=== PATIENT | female | born 1985 | race Caucasian/White ===

== ENCOUNTER 2018-02-11 12:57 | Inpatient (IN) ==
--- NOTE | 2018-02-11 16:51 | P.HPOB ---
atient Name: Jelly Mcmanus Date of : 85 Patient Status: Inpatient Attending Provider: Jose Wilder Date: 02/11/18 16:46 Initialization Date: 02/11/18 16:46 History of Present Illness Primary Care Physician: Dr. Browning Chief Complaint: Vaginal bleeding History of Present Illness: 32-year-old at 39 weeks presents complaining of vaginal bleeding this morning. care with Dr. Browinng uneventful to date/denies history of previa. GBS is negative. Initially cervix was found to be 2 cm however patient was allowed to ambulate now 4 cm. Review of Systems All other systems reviewed negative except as stated in HPI PMFSH - Travel History Recent Travel in the [facility] Within the Last 8 Weeks: No Recent Travel Out of the Country Within the Last 8 Weeks: No Medications and Allergies Allergies Allergy/AdvReac Type Severity Reaction Status Date / Time No Known Allergies Allergy Verified 02/11/18 13:30 Home Medications Medication Instructions Recorded Confirmed Type PNV cmb#95-ferrous fumarate-FA 1 tab PO DAILY NEB 02/11/18 02/11/18 History [] Exam Vital signs: Vital Signs 02/11/18 13:25 02/11/18 13:27 02/11/18 13:40 Pulse Rate 92 H 94 H 95 H Blood Pressure 114/77 02/11/18 14:05 02/11/18 15:10 Pulse Rate 95 H 100 H Blood Pressure Intake & Output 02/10/18 02/11/18 02/11/18 18:59 06:59 18:59 Weight 68 kg Narrative: GENERAL: Well-nourished, well-developed patient. SKIN: Warm and dry. HEAD: Normocephalic and atraumatic. EYES: No scleral icterus. No injection or drainage. ENT: No nasal drainage noted. Mucous membranes pink. Airway patent. NECK: Supple, trachea midline. No JVD. CARDIOVASCULAR: Regular rate and rhythm without murmurs, gallops, or rubs. RESPIRATORY: Breath sounds equal bilaterally. No accessory muscle use. BREASTS: Bilateral exam showed no masses , no retractions, no nipple discharge. ABDOMEN/GI: Abdomen soft, non-tender, bowel sounds present, no rebound, no guarding Gravid to 39 weeks size Fundal Height: Consistent with gestational age GENITOURINARY: External Genitalia: intact and normal in appearance BUS glands: Unremarkable Cervix: Moderate to soft Dilatation: 4 Effacement: 80 Station: -2 Presentation: Vertex Membranes: Intact Uterine Contractions: Present FHT's: Category: 1 Reactive: Yes Variability: Moderate Decels: No EXTREMITIES: No cyanosis or edema. BACK: Nontender without obvious deformity. No CVA tenderness. NEUROLOGICAL: Awake and alert. Motor and sensory grossly within normal limits. Five out of 5 muscle strength in all muscle groups. Normal speech. Assessment and Plan - Diagnosis (1) 39 weeks gestation of Code(s): Z3A.39 - 39 weeks gestation of Status: Acute (2) Vaginal bleeding in Code(s): O46.90 - Antepartum hemorrhage, unspecified, unspecified trimester Status: Acute (3) Active labor at term Status: Acute - Plan Admit. Discussed with Dr. Arellano. Patient may continue ambulation as long as status is reassuring Discharge Plan - Discharge Disposition Patient Disposition: 30 Still Patient - Discharge Condition Condition: Good - Physicians Team ED Provider: Mackenzie Boggs Primary Care Provider: Primary Care Miladys Nichols - Rxs /Orders / Referrals /Forms Prescriptions: No Action PNV cmb#95-ferrous fumarate-FA [] 28 mg iron- 800 mcg Tablet 1 tab PO DAILY NEB - Discharge Instructions Print Language: Yemeni
[2018-02-11] MEDS ORDERED: Naloxone Inj 0.4 MG/ML Vial IV.PUSH PRN (16:52)
[2018-02-11] MEDS ORDERED: fentaNYL Citrate Inj 100 MCG/2 ML Ampul IV.PUSH PRN ×2 (16:52)
[2018-02-11] MEDS ORDERED: Oxytocin 30 Units/500ml Premix 30 UNITS/500 ML BAG IV.SIG ONE (16:52)
[2018-02-11] MEDS ORDERED: Sodium Chlor 0.9% Inj 500 ML IV.SIG PRN (16:52)
[2018-02-11] MEDS ORDERED: Sod Chloride 0.9% Inj 1,000 ML IV.CONT PRN (16:52)
[2018-02-11] MEDS ORDERED: Citric Acid/Sodium Citrate Liq 30 ML UDC PO SCH (17:00)
[2018-02-11 18:05] LABS: Baso # (Auto) 0.1 th/mm3 (0.0-0.2); Baso % (Auto) 0.3 % (0.0-2.0); Eos % (Auto) 0.2 % (0.0-4.0); Hematocrit 36.4 % (35.0-46.0); Hemoglobin 12.8 gm/dL (11.6-15.3); Lymph # (Auto) 2.1 th/mm3 (1.0-4.8); Lymph % (Auto) 13.9 % (9.0-44.0); Mean Corpuscular HGB Conc 35.1 % (32.0-36.0); Mean Corpuscular Hemoglobin 32.3 pg (27.0-34.0); Mean Corpuscular Volume 92.2 fL (80.0-100.0); Mean Platelet Volume 9.3 fL (7.0-11.0); Mono # (Auto) 0.4 th/mm3 (0.0-0.9); Mono % (Auto) 2.9 % (0.0-8.0); Neut # (Auto) 12.3 th/mm3 (1.8-7.7); Neut % (Auto) 82.7 % (16.0-70.0); Platelet Count 219 th/mm3 (150-450); Red Blood Count 3.95 mil/mm3 (4.00-5.30); Red Cell Distribution Width 13.4 % (11.6-17.2); White Blood Count 14.9 th/mm3 (4.0-11.0)
[2018-02-11] MEDS ORDERED: Oxytocin 30 Units/500ml Premix 30 UNITS/500 ML BAG IV.SIG PRN (21:19)
[2018-02-11 22:27] LABS: Bilirubin,Urine Negative (Negative); Clarity,Urine Hazy (Clear); Color,Urine Yellow (Yellw/Straw); Glucose,Urine (UA) Negative (Negative); Leukocyte Esterase,Urine Negative (Negative); Mucus,Urine Few /lpf (Occasional); Nitrite,Urine Negative (Negative); Specific Gravity,Urine 1.024 (1.002-1.035); Squamous Epithelial Cell,Urine 3 /hpf (0-5)
[2018-02-11 22:40] LABS: Amphetamine Urine With Conf Neg (Neg); Benzodiazepine Urine With Conf Neg (Neg)
[2018-02-12] MEDS ORDERED: fentaNYL 2MCG-Bupiv 0.125% Epi 150 ML EPIDURAL ONE (06:24)
[2018-02-12] MEDS ORDERED: Bupivacaine PF 0.25% Inj 10 ML Vial ONE (06:41)
[2018-02-12] MEDS ORDERED: Lidocaaine 1.5%/Epinephrine 1:200,000 PF Inj 5 ML Amp ONE (06:42)
[2018-02-12] MEDS ORDERED: Lidocaine PF 1% Inj 5 ML Vial ONE (06:42)
[2018-02-12] MEDS ORDERED: fentaNYL Citrate Inj 100 MCG/2 ML Ampul EPIDURAL ONE (07:55)
[2018-02-12] MEDS ORDERED: fentaNYL 2MCG-Bupiv 0.125% Epi 150 ML EPIDURAL PRN (08:00)
--- NOTE | 2018-02-12 10:08 | P.OBLABOR ---
Subjective Interval history: pt comfortable with epidural, on pitocin Objective Vital Signs: Vital Signs - 8 hr 02/12/18 03:00 02/12/18 03:30 02/12/18 05:39 Temperature 98.5 F Pulse Rate 71 75 Respiratory Rate 14 Blood Pressure 124/78 116/70 02/12/18 06:00 02/12/18 06:50 02/12/18 06:56 Temperature 98.7 F Pulse Rate 94 H 82 Respiratory Rate 20 15 Blood Pressure 129/85 118/76 02/12/18 07:00 02/12/18 07:10 02/12/18 07:15 Temperature Pulse Rate 93 H 92 H 97 H Respiratory Rate Blood Pressure 116/75 104/63 117/69 02/12/18 07:30 02/12/18 07:40 02/12/18 07:55 Temperature Pulse Rate 97 H 101 H 81 Respiratory Rate 18 Blood Pressure 116/74 114/70 116/69 02/12/18 08:35 02/12/18 08:40 02/12/18 08:44 Temperature Pulse Rate 91 H 107 H Respiratory Rate 16 Blood Pressure 105/71 02/12/18 08:55 02/12/18 09:00 02/12/18 09:10 Temperature 98.8 F Pulse Rate 94 H 100 H Respiratory Rate Blood Pressure 118/83 02/12/18 09:31 Temperature Pulse Rate 108 H Respiratory Rate Blood Pressure 100/56 L Objective: Pelvic Exam: Cervix: [-] Dilatation: [-] 7 Effacement: [-] 90 Station: [-] 0 Presentation: [-] vtx Membranes: [intact or ruptured] arom clear at 0840 Uterine Contractions: [-] q3-4 FHT's: Category: [-] 1 Baseline: [-] Reactive: [-] R Variability: [-] Decels: [-] Patient Started Active Labor: Yes Medical Induction of Labor: No Artificial Rupture of Membrane: Yes Artificial ROM Date: 02/12/18 Assessment and Plan - Diagnosis (1) 39 weeks gestation of Code(s): Z3A.39 - 39 weeks gestation of Status: Acute (2) Active labor at term Status: Acute - Plan IUP at term in labor f/u labor progress, anticipate Discharge Planning: routine PPD 1-2 - Attending Attestation pt seen by me
[2018-02-12] MEDS ORDERED: Lidocaine 1% Inj 50 ML Vial ONE (10:25)
[2018-02-12] MEDS ORDERED: Benzocaine 20% Top Spray 60 ML Can TOPICAL PRN (14:50)
[2018-02-12] MEDS ORDERED: Naloxone Inj 0.4 MG/ML Vial IV.PUSH PRN (14:50)
[2018-02-12] MEDS ORDERED: Oxytocin 30 Units/500ml Premix 30 UNITS/500 ML BAG IV.CONT PRN (14:50)
[2018-02-12] MEDS ORDERED: Bisacodyl 10 MG Supp RECTAL PRN (14:50)
[2018-02-12] MEDS ORDERED: Witch Hazel 50%/Glyderin 12.5% 40 Pad Jar RECTAL PRN (14:50)
[2018-02-12] MEDS ORDERED: Acetaminophen 325 MG Tablet PO PRN (14:50)
--- NOTE | 2018-02-12 14:50 | P.OBDELI ---
Weeks Gestation: 39 Patient Started Active Labor: Yes Active Labor Start Date: 02/11/18 Medical Induction of Labor: No Artificial Rupture of Membrane: Yes Artificial ROM Date: 02/12/18 Artificial ROM Time: 08:38 Anesthesia: Epidural Episiotomy: none Vaginal Delivery: Normal Presentation: Occiput anterior Nuchal Cord: None Delayed Cord Clamping (45 sec): Yes Placenta: Spontaneous delivery Laceration: 2 deg Repair: Chromic interrupted Estimated blood loss (mL): 300 Infant: Male
[2018-02-12] MEDS ORDERED: Diphtheria/Tetanus/Pertussis Vaccine Inj 0.5 ML Syringe IM ONE (16:00)
[2018-02-12] MEDS ORDERED: Measles/Mumps/Rubella Vaccine Inj 0.5 ML Vial SQ ONE (16:00)
[2018-02-12] MEDS ORDERED: Zolpidem Tartrate 5 MG Tablet PO PRN (21:00)
[2018-02-13] MEDS: Senna/Docusate Sodium 8.6/50 MG Tablet PO SCH (08:10)
--- NOTE | 2018-02-13 09:59 | P.PNOB ---
Subjective Post day: 1 Interval history: doing well, baby for circ Objective Vital Signs/I&O: Vital Signs 02/12/18 10:10 02/12/18 10:25 02/12/18 10:30 Temperature Pulse Rate 104 H 94 H 100 H Respiratory Rate Blood Pressure 114/75 112/71 02/12/18 10:40 02/12/18 10:55 02/12/18 11:00 Temperature 98.1 F Pulse Rate 98 H 95 H 81 Respiratory Rate Blood Pressure 120/72 02/12/18 11:05 02/12/18 11:10 02/12/18 11:25 Temperature Pulse Rate 97 H 79 85 Respiratory Rate Blood Pressure 115/74 02/12/18 11:55 02/12/18 12:00 02/12/18 12:11 Temperature 98.9 F Pulse Rate 84 96 H Respiratory Rate Blood Pressure 101/60 02/12/18 12:25 02/12/18 12:55 02/12/18 13:05 Temperature Pulse Rate 95 H 102 H 92 H Respiratory Rate Blood Pressure 106/73 114/73 02/12/18 13:10 02/12/18 13:40 02/12/18 14:45 Temperature Pulse Rate 98 H 101 H 115 H Respiratory Rate Blood Pressure 118/79 113/68 02/12/18 15:00 02/12/18 15:15 02/12/18 15:25 Temperature 99.5 F Pulse Rate 113 H 111 H Respiratory Rate Blood Pressure 114/74 120/78 02/12/18 15:30 02/12/18 16:16 02/12/18 20:33 Temperature 98.3 F Pulse Rate 109 H 95 H 64 Respiratory Rate 18 Blood Pressure 111/69 106/66 96/69 L 02/13/18 08:19 Temperature 98.7 F Pulse Rate 96 H Respiratory Rate 18 Blood Pressure 106/73 Intake & Output 02/12/18 02/13/18 02/13/18 18:59 06:59 18:59 Intake Total 1000 / 1000 Balance 1000 / 1000 Intake: IV 1000 / 1000 LR 1000 mL Inj 1,000 ML @ 125 1000 / 1000 mls/hr IV.CONT .Q8H [facility] Rx#: [id number] Result Diagrams: 02/11/18 17:30 Objective Remarks: GENERAL: Well-nourished, well-developed patient. CARDIOVASCULAR: Regular rate and rhythm without murmurs, gallops, or rubs. RESPIRATORY: Breath sounds equal bilaterally. No accessory muscle use. ABDOMEN/GI: Abdomen soft, non-tender. Fundus: Firm, non-tender at umbilicus. GENITOURINARY: Light to moderate bleeding. EXTREMITIES: No cyanosis or edema, non-tender, without signs of DVT. Medications and IVs: Active Medications Acetaminophen (Tylenol) 650 mg PO Q4H PRN PRN Reason: PAIN SCALE 1 TO 2 Al Hydroxide/Mg Hydroxide (Milk Of Magnesia Liq) 30 ml PO Q12H PRN PRN Reason: Mild Constipation Benzocaine (Americaine 20% Top [place]) 1 spray TOPICAL Q4H PRN PRN Reason: For Perineum Discomfort Last Admin: 02/12/18 15:48 Dose: 1 spray Bisacodyl (Dulcolax Supp) 10 mg RECTAL DAILY PRN PRN Reason: SEVERE CONSITIPATION Citric Acid/Sodium Citrate (Sodium Citrate/Citric Acid Liq) 30 ml PO [employer] [facility] Stop: 02/15/18 16:59 Fentanyl Citrate (Fentanyl Inj) 50 mcg IV.PUSH Q1H PRN PRN Reason: Pain Scale 3 - 5 Fentanyl Citrate (Fentanyl Inj) 100 mcg IV.PUSH Q1H PRN PRN Reason: PAIN SCALE 6 TO 10 Lactated Ringer's (Lr 1000 Ml Inj) 1,000 mls @ 3,000 mls/hr IV.SIG UNSCH PRN PRN Reason: compromise or epidural Lactated Ringer's (Lr 1000 Ml Inj) 1,000 mls @ 125 mls/hr IV.CONT .Q8H [facility] Last Admin: 02/12/18 07:53 Dose: 125 mls/hr Sodium Chloride (Ns Inj) 500 mls @ 1,000 mls/hr IV.SIG UNSCH PRN PRN Reason: SEE LABEL COMMENTS Sodium Chloride (Ns Inj) 1,000 mls @ 100 mls/hr IV.CONT .Q10H PRN PRN Reason: SEE LABEL COMMENTS Oxytocin (Pitocin 30 Units/Ns 500 Ml Premix) 30 units in 500 mls @ 2 mls/hr IV.SIG TITRATE PRN; Protocol PRN Reason: For induction of labor Last Admin: 02/12/18 01:36 Dose: 1 milliunit/min, 1 mls/hr Fentanyl/Bupivacaine/Sodium Chlor (Fentanyl 2 Mcg-Bupiv 0.125% Epi) 150 mls @ 10 mls/hr EPIDURAL PRN PRN PRN Reason: for Labor Pain Oxytocin (Pitocin 30 Units/Ns 500 Ml Premix) 30 units in 500 mls @ 100 mls/hr IV.CONT UNSCH PRN PRN Reason: Heavy bleeding Ibuprofen (Motrin) 800 mg PO Q8H PRN PRN Reason: For Cramping Last Admin: 02/13/18 08:09 Dose: 800 mg Lactulose (Lactulose Liq) 30 ml PO DAILY PRN PRN Reason: SEVERE CONSITIPATION Lidocaine HCl (Xylocaine 1% Inj) 0.1 ml I-DERMAL PRN PRN PRN Reason: For IV start Stop: 02/14/18 16:51 Lidocaine HCl (Xylocaine 1% Inj) 10 ml INFILTRATN PRN PRN PRN Reason: For episiotomy repair Stop: 02/13/18 16:51 Mineral Oil (Muri-Lube Oil) 10 ml TOPICAL PRN PRN PRN Reason: PRN perineal massage Naloxone HCl (Narcan Inj) 0.1 mg IV.PUSH Q2M PRN PRN Reason: for opiate reversal Naloxone HCl (Narcan Inj) 0.1 mg IV.PUSH Q2M PRN PRN Reason: for opiate reversal Ondansetron HCl (Zofran Odt) 4 mg PO Q6H PRN PRN Reason: NAUSEA OR VOMITING Senna/Docusate Sodium (Christina-Colace) 1 tab PO BID [facility] Last Admin: 02/13/18 08:10 Dose: 1 tab Sennosides (Senokot) 17.2 mg PO Q12H PRN PRN Reason: Moderate Constipation Sodium Chloride (Ns Flush) 2 ml IV.FLUSH BID [facility] Last Admin: 02/13/18 08:29 Dose: Not Given Sodium Chloride (Ns Flush) 2 ml IV.FLUSH PRN PRN PRN Reason: FLUSH AFTER USING IV ACCESS Last Admin: 02/12/18 15:47 Dose: 2 ml Witch Divya/Glycerin (Tucks Pads) 1 applicatio RECTAL QID PRN PRN Reason: HEMORRHOIDS Last Admin: 02/12/18 15:48 Dose: 1 applicatio Zolpidem Tartrate (Ambien) 5 mg PO HS PRN PRN Reason: SLEEP Assessment and Plan - Diagnosis (1) 39 weeks gestation of Code(s): Z3A.39 - 39 weeks gestation of Status: Acute (2) Active labor at term Status: Acute (3) Vaginal delivery Code(s): O80 - Encounter for full-term uncomplicated delivery Status: Acute - Plan s/p PPD#1 circ done today for discharge in am Discharge Planning: routine PPD 1-2 - Attending Attestation pt seen by me
[2018-02-13] MEDS ORDERED: Influenza (Quadrivalent) Vaccine 0.5 ML Syringe IM ONE (18:30)
--- NOTE | 2018-02-14 08:16 | P.PNOB ---
Subjective Post day: 2 Interval history: PPD#2, Doing well, stable,plan for discharge Objective Vital Signs/I&O: Vital Signs 02/13/18 08:19 02/13/18 21:30 Temperature 98.7 F 98.3 F Pulse Rate 96 H 76 Respiratory Rate 18 16 Blood Pressure 106/73 109/71 Result Diagrams: 02/11/18 17:30 Objective Remarks: GENERAL: Well-nourished, well-developed patient. CARDIOVASCULAR: Regular rate and rhythm without murmurs, gallops, or rubs. RESPIRATORY: Breath sounds equal bilaterally. No accessory muscle use. ABDOMEN/GI: Abdomen soft, non-tender. Fundus: Firm, non-tender at umbilicus. GENITOURINARY: Light to moderate bleeding. EXTREMITIES: No cyanosis or edema, non-tender, without signs of DVT. Medications and IVs: Active Medications Acetaminophen (Tylenol) 650 mg PO Q4H PRN PRN Reason: PAIN SCALE 1 TO 2 Al Hydroxide/Mg Hydroxide (Milk Of Magnesia Liq) 30 ml PO Q12H PRN PRN Reason: Mild Constipation Benzocaine (Americaine 20% Top [place]) 1 spray TOPICAL Q4H PRN PRN Reason: For Perineum Discomfort Last Admin: 02/12/18 15:48 Dose: 1 spray Bisacodyl (Dulcolax Supp) 10 mg RECTAL DAILY PRN PRN Reason: SEVERE CONSITIPATION Citric Acid/Sodium Citrate (Sodium Citrate/Citric Acid Liq) 30 ml PO [employer]AL[employer] [facility] Stop: 02/15/18 16:59 Fentanyl Citrate (Fentanyl Inj) 50 mcg IV.PUSH Q1H PRN PRN Reason: Pain Scale 3 - 5 Fentanyl Citrate (Fentanyl Inj) 100 mcg IV.PUSH Q1H PRN PRN Reason: PAIN SCALE 6 TO 10 Lactated Ringer's (Lr 1000 Ml Inj) 1,000 mls @ 3,000 mls/hr IV.SIG UNSCH PRN PRN Reason: compromise or epidural Lactated Ringer's (Lr 1000 Ml Inj) 1,000 mls @ 125 mls/hr IV.CONT .Q8H [facility] Last Admin: 02/12/18 07:53 Dose: 125 mls/hr Sodium Chloride (Ns Inj) 500 mls @ 1,000 mls/hr IV.SIG UNSCH PRN PRN Reason: SEE LABEL COMMENTS Sodium Chloride (Ns Inj) 1,000 mls @ 100 mls/hr IV.CONT .Q10H PRN PRN Reason: SEE LABEL COMMENTS Oxytocin (Pitocin 30 Units/Ns 500 Ml Premix) 30 units in 500 mls @ 2 mls/hr IV.SIG TITRATE PRN; Protocol PRN Reason: For induction of labor Last Admin: 02/12/18 01:36 Dose: 1 milliunit/min, 1 mls/hr Fentanyl/Bupivacaine/Sodium Chlor (Fentanyl 2 Mcg-Bupiv 0.125% Epi) 150 mls @ 10 mls/hr EPIDURAL PRN PRN PRN Reason: for Labor Pain Oxytocin (Pitocin 30 Units/Ns 500 Ml Premix) 30 units in 500 mls @ 100 mls/hr IV.CONT UNSCH PRN PRN Reason: Heavy bleeding Ibuprofen (Motrin) 800 mg PO Q8H PRN PRN Reason: For Cramping Last Admin: 02/13/18 18:24 Dose: 800 mg Lactulose (Lactulose Liq) 30 ml PO DAILY PRN PRN Reason: SEVERE CONSITIPATION Lidocaine HCl (Xylocaine 1% Inj) 0.1 ml I-DERMAL PRN PRN PRN Reason: For IV start Stop: 02/14/18 16:51 Mineral Oil (Muri-Lube Oil) 10 ml TOPICAL PRN PRN PRN Reason: PRN perineal massage Naloxone HCl (Narcan Inj) 0.1 mg IV.PUSH Q2M PRN PRN Reason: for opiate reversal Naloxone HCl (Narcan Inj) 0.1 mg IV.PUSH Q2M PRN PRN Reason: for opiate reversal Ondansetron HCl (Zofran Odt) 4 mg PO Q6H PRN PRN Reason: NAUSEA OR VOMITING Senna/Docusate Sodium (Christina-Colace) 1 tab PO BID [facility] Last Admin: 02/13/18 08:10 Dose: 1 tab Sennosides (Senokot) 17.2 mg PO Q12H PRN PRN Reason: Moderate Constipation Sodium Chloride (Ns Flush) 2 ml IV.FLUSH BID [facility] Last Admin: 02/13/18 08:29 Dose: Not Given Sodium Chloride (Ns Flush) 2 ml IV.FLUSH PRN PRN PRN Reason: FLUSH AFTER USING IV ACCESS Last Admin: 02/12/18 15:47 Dose: 2 ml Witch Divya/Glycerin (Tucks Pads) 1 applicatio RECTAL QID PRN PRN Reason: HEMORRHOIDS Last Admin: 02/12/18 15:48 Dose: 1 applicatio Zolpidem Tartrate (Ambien) 5 mg PO HS PRN PRN Reason: SLEEP Assessment and Plan - Diagnosis (1) 39 weeks gestation of Code(s): Z3A.39 - 39 weeks gestation of Status: Acute (2) Active labor at term Status: Acute (3) Vaginal delivery Code(s): O80 - Encounter for full-term uncomplicated delivery Status: Acute - Plan s/p PPD#1 circ done today for discharge in am 02/14/18 PPD#2; Stable, plan discharge today Discharge Planning: routine PPD 2
[2018-02-14 09:16] VITALS: BP 130/92; PULSE 80; RESP 12; TEMP 98.4
[2018-02-14] MEDS: Senna/Docusate Sodium 8.6/50 MG Tablet PO SCH (09:41)
== END 2018-02-14 16:24 | disposition home or self-care (01) ==
LOC: HOBED 12:57 → H2E 16:45 → H1EA 02-12 17:16
PROVIDERS: ADMIT Obstetrics & Gynecology; ATTEND Obstetrics & Gynecology

== ENCOUNTER 2018-02-28 06:08 | Inpatient (IN) ==
[2018-02-28 07:28] LABS: Baso % (Auto) 0.4 % (0.0-2.0); Eos # (Auto) 0.2 th/mm3 (0.0-0.4); Hematocrit 38.2 % (35.0-46.0); Hemoglobin 12.9 gm/dL (11.6-15.3); Lymph # (Auto) 1.7 th/mm3 (1.0-4.8); Lymph % (Auto) 19.1 % (9.0-44.0); Mean Corpuscular HGB Conc 33.8 % (32.0-36.0); Mean Corpuscular Hemoglobin 31.6 pg (27.0-34.0); Mean Corpuscular Volume 93.5 fL (80.0-100.0); Mono # (Auto) 0.3 th/mm3 (0.0-0.9); Mono % (Auto) 3.8 % (0.0-8.0); Neut # (Auto) 6.7 th/mm3 (1.8-7.7); Neut % (Auto) 74.7 % (16.0-70.0); Platelet Count 316 th/mm3 (150-450); Red Blood Count 4.09 mil/mm3 (4.00-5.30); Red Cell Distribution Width 12.8 % (11.6-17.2); White Blood Count 8.9 th/mm3 (4.0-11.0)
--- NOTE | 2018-02-28 07:28 | ED ---
HPI General Chief Complaint: Headache Stated Complaint: Numbnesss hands Time Seen by Provider: 02/28/18 07:04 Source: patient and family Mode of arrival: ambulatory Limitations: no limitations History of Present Illness HPI Narrative: 32 y/o female states at 3 am awoke with left arm weakness and numbness. She is [address] castle Performed a vaginal delivery. She states that she had no complications with the delivery but was borderline preeclamptic near the end. She states that she did not have any symptoms yesterday. She states that her left breast is more engorged if that matters. She states that She is having no other concurrent complaints. She states she did have a headache earlier but it has now resolved. Related Data Home Medications Medication Instructions Recorded Confirmed PNV cmb#95-ferrous fumarate-FA 1 tab PO DAILY NEB 02/11/18 02/28/18 [] Allergies Allergy/AdvReac Type Severity Reaction Status Date / Time No Known Allergies Allergy Verified 02/28/18 06:13 Review of Systems ROS: all other systems reviewed are negative [facility] Medical History Medical History Prehypertension (Acute) Surgical History Surgical History No history of previous surgery (Acute) Social History Social History Substance History: No History of Abuse Second Hand Smoke Exposure: No Smoking Status: Never smoker How Often Do You Have a Drink Containing Alcohol: Never Recent Travel in [facility] within the Last 8 Weeks: No Recent Out of Country Travel within the Last 8 Weeks: No Immunization History Tetanus Immunization: <5 Years Exam Narrative Exam Narrative: GENERAL: 32 y/o female in no apparent distress SKIN: Focused skin assessment warm/dry. HEAD: Atraumatic. Normocephalic. EYES: Pupils equal and round. No scleral icterus. No injection or drainage. ENT: No nasal bleeding or discharge. Mucous membranes pink and moist. NECK: Trachea midline. No JVD. CARDIOVASCULAR: Regular rate and rhythm. RESPIRATORY: No accessory muscle use. Clear to auscultation. Breath sounds equal bilaterally. GASTROINTESTINAL: Abdomen soft, non-tender, nondistended. MUSCULOSKELETAL: No obvious deformities. No clubbing. No cyanosis. No edema. NEUROLOGICAL: Awake and alert. Patient has mild weakness noted to left hand with grasp, no pronator drift but left arm has mild weakness associated as well. She has noted tingling to her entire left lower arm from elbow down currently. No weakness noted to the legs, rapid alternating intact, Normal speech. PSYCHIATRIC: Appropriate mood and affect; insight and judgment normal. Course Reevaluation(s) Reevaluation #1: Patient updated and agrees to admission. Patient still without headache and weakness has improved but still present. Consultations Consultation #1: ob hospitalist states to also check urine protein to creatnine ratio and will follow Consultation #2: dr tinsley states to check mri and mra head stat if these are negative to check mrv and admit Consultation #3: dr ratliff agrees to admit Initial Documented Vital Signs Temperature 98.8 F 02/28/18 06:10 Pulse Rate 101 H 02/28/18 06:10 Respiratory Rate 18 02/28/18 06:10 Blood Pressure 148/94 H 02/28/18 06:10 Pulse Oximetry 98 02/28/18 06:10 Last Documented Vital Signs Temperature 98.8 F 02/28/18 06:10 Pulse Rate 82 02/28/18 07:30 Respiratory Rate 22 02/28/18 07:30 Blood Pressure 135/80 02/28/18 07:30 Pulse Oximetry 97 02/28/18 07:30 Medical Decision Making [facility] Narrative Medical decision making narrative: Will check blood work, CT brain and closely monitor Medical Screen Exam Complete: Yes Emergency Medical Condition: Yes Differential Diagnosis Differential Diagnosis: Preeclampsia, radial nerve palsy, stroke, bleed Lab Data Result diagrams: 02/28/18 07:11 02/28/18 07:11 Lab Results 02/28/18 02/28/18 02/28/18 Range/Units 04:50 04:50 07:11 WBC 8.9 (4.0-11.0) th/mm3 RBC 4.09 (4.00-5.30) mil/mm3 Hgb 12.9 (11.6-15.3) gm/dL Hct 38.2 (35.0-46.0) % MCV 93.5 (80.0-100.0) fL MCH 31.6 (27.0-34.0) pg MCHC 33.8 (32.0-36.0) % RDW 12.8 (11.6-17.2) % Plt Count 316 D (150-450) th/mm3 MPV 8.0 (7.0-11.0) fL Neut % (Auto) 74.7 H (16.0-70.0) % Lymph % (Auto) 19.1 (9.0-44.0) % [place] % (Auto) 3.8 (0.0-8.0) % Eos % (Auto) 2.0 (0.0-4.0) % Baso % (Auto) 0.4 (0.0-2.0) % Neut # (Auto) 6.7 (1.8-7.7) th/mm3 Lymph # (Auto) 1.7 (1.0-4.8) th/mm3 [place] # (Auto) 0.3 (0.0-0.9) th/mm3 Eos # (Auto) 0.2 (0.0-0.4) th/mm3 Baso # (Auto) 0.0 (0.0-0.2) th/mm3 WBC Differential . Differential Comment Auto diff final PT (9.8-11.6) sec INR Ratio APTT (24.3-30.1) sec Sodium (136-145) meq/L Potassium (3.5-5.1) meq/L Chloride (98-107) meq/L Carbon Dioxide (21.0-32.0) meq/L Anion Gap (5-15) meq/L BUN (7-18) mg/dL Creatinine (0.50-1.00) mg/dL Estimated GFR (>89) mL/min Random Glucose (74-106) mg/dL Calcium (8.5-10.1) mg/dL Total Bilirubin (0.2-1.0) mg/dL AST (15-37) U/L ALT (10-53) U/L Alkaline Phosphatase (45-117) U/L Total Protein (6.4-8.2) g/dL Albumin (3.4-5.0) g/dL Urine Color Straw (Yellw/Straw) Urine Clarity Clear (Clear) Urine pH 6.0 (5.0-8.5) Ur Specific Al[place] 1.004 (1.002-1.035) Urine Protein Negative (Neg-Trace) mg/dL Urine Glucose (UA) Negative (Negative) mg/dL Urine Ketones Negative (Negative) mg/dL Urine Occult Blood Moderate H (Negative) Urine Nitrate Negative (Negative) Urine Bilirubin Negative (Negative) Urine Urobilinogen Less than 2 (Less than 2) mg/dL Ur Leukocyte Esterase Moderate H (Negative) Urine RBC 2 (0-3) /hpf Urine WBC 6 H (0-5) /hpf Ur Squamous Epith Cells 6 (0-5) /hpf Urine Bacteria Rare H (None) /hpf Micro UA Comment Culture not ind Ur Microscopic Review Not Reportable Urine Culture Comments Culture not ind Ur Random Creatinine Less than 13 L (27-300) mg/dL U Random Total Protein 6.5 (0-11.8) mg/dL Protein/Creatinin Ratio 0.00 (0.00-0.14) 02/28/18 02/28/18 Range/Units 07:11 07:11 WBC (4.0-11.0) th/mm3 RBC (4.00-5.30) mil/mm3 Hgb (11.6-15.3) gm/dL Hct (35.0-46.0) % MCV (80.0-100.0) fL MCH (27.0-34.0) pg MCHC (32.0-36.0) % RDW (11.6-17.2) % Plt Count (150-450) th/mm3 MPV (7.0-11.0) fL Neut % (Auto) (16.0-70.0) % Lymph % (Auto) (9.0-44.0) % [place] % (Auto) (0.0-8.0) % Eos % (Auto) (0.0-4.0) % Baso % (Auto) (0.0-2.0) % Neut # (Auto) (1.8-7.7) th/mm3 Lymph # (Auto) (1.0-4.8) th/mm3 [place] # (Auto) (0.0-0.9) th/mm3 Eos # (Auto) (0.0-0.4) th/mm3 Baso # (Auto) (0.0-0.2) th/mm3 WBC Differential Differential Comment PT 10.1 (9.8-11.6) sec INR 1.0 Ratio APTT 25.8 (24.3-30.1) sec Sodium 143 (136-145) meq/L Potassium 4.0 (3.5-5.1) meq/L Chloride 110 H (98-107) meq/L Carbon Dioxide 24.7 (21.0-32.0) meq/L Anion Gap 8 (5-15) meq/L BUN 13 (7-18) mg/dL Creatinine 0.64 (0.50-1.00) mg/dL Estimated GFR Greater than 89 (>89) mL/min Random Glucose 89 (74-106) mg/dL Calcium 8.7 (8.5-10.1) mg/dL Total Bilirubin 0.2 (0.2-1.0) mg/dL AST 16 (15-37) U/L ALT 21 (10-53) U/L Alkaline Phosphatase 131 H (45-117) U/L Total Protein 7.4 (6.4-8.2) g/dL Albumin 3.3 L (3.4-5.0) g/dL Urine Color (Yellw/Straw) Urine Clarity (Clear) Urine pH (5.0-8.5) Ur Specific [place] (1.002-1.035) Urine Protein (Neg-Trace) mg/dL Urine Glucose (UA) (Negative) mg/dL Urine Ketones (Negative) mg/dL Urine Occult Blood (Negative) Urine Nitrate (Negative) Urine Bilirubin (Negative) Urine Urobilinogen (Less than 2) mg/dL Ur Leukocyte Esterase (Negative) Urine RBC (0-3) /hpf Urine WBC (0-5) /hpf Ur Squamous Epith Cells (0-5) /hpf Urine Bacteria (None) /hpf Micro UA Comment Ur Microscopic Review Urine Culture Comments Ur Random Creatinine (27-300) mg/dL U Random Total Protein (0-11.8) mg/dL Protein/Creatinin Ratio (0.00-0.14) Imaging Data Radiologist's impression: Head CT 02/28/18 07:14 CONCLUSION: 1. Negative for acute process . Discharge Plan Discharge Disposition Patient Disposition: 30 Still Patient Discharge Details Diagnosis: Left arm weakness Physicians Team ED Provider: Jannie Estevez Primary Care Provider: Primary Care Magdalena,Miladys Attending Provider: Daya Gonzalez Other Providers: Ifeoma Tinsley ; [facility],Insurance Discharge Interventions Interventions: Vital Signs Last Done: 02/28/18 06:13 Status ED Status: Admitted Patient
[2018-02-28 07:40] LABS: Activated Partial Thrombo Time 25.8 sec (24.3-30.1); Prothrombin Time 10.1 sec (9.8-11.6)
[2018-02-28 07:52] LABS: Alanine Aminotransferase 21 U/L (10-53); Albumin 3.3 g/dL (3.4-5.0); Anion Gap 8 meq/L (5-15); Aspartate Aminotransferase 16 U/L (15-37); Blood Urea Nitrogen 13 mg/dL (7-18); Calcium 8.7 mg/dL (8.5-10.1); Carbon Dioxide 24.7 meq/L (21.0-32.0); Chloride 110 meq/L (98-107); Glomerular Filtration Rate Greater Than 89 mL/min (>89); Glucose,Random 89 mg/dL (74-106); Sodium 143 meq/L (136-145)
[2018-02-28 07:54] LABS: Alkaline Phosphatase 131 U/L (45-117); Total Protein 7.4 g/dL (6.4-8.2)
--- NOTE | 2018-02-28 08:20 | CT ---
EXAM DATE: 02/28/2018 8:16 AM EDT AGE/SEX: 32 years / Female INDICATIONS: Bilateral hand numbness and weakness for one week. Two weeks post . CLINICAL DATA: This is the patient's initial encounter. Patient reports that signs and symptoms have been present for 1 week and indicates a pain score of 2/10. MEDICAL/SURGICAL HISTORY: None. None. RADIATION DOSE: 56.35 CTDI (mGy) COMPARISON: No prior exams available for comparison. TECHNIQUE: CT of the head without contrast. Using automated exposure control and adjustment of the mA and/or kV according to patient size, radiation dose was kept as low as reasonably achievable to ob tain optimal diagnostic quality images. DICOM format image data is available electronically for revi ew and comparison. FINDINGS: Cerebrum: The ventricles are normal for age. No evidence of midline shift, mass lesion, hemorrhage or acute infarction. No extraaxial fluid collections are seen. Posterior Fossa: The cerebellum and brainstem are intact. The 4th ventricle is midline. The cerebe llopontine angle is unremarkable. Extracranial: The visualized portion of the orbits is intact. Skull: The calvaria is intact. No evidence of skull fracture. CONCLUSION: 1. Negative for acute process . Electronically signed by: Dannie Dias MD 02/28/2018 8:19 AM EDT
[2018-02-28 08:22] LABS: Bacteria,Urine Rare /hpf; Bilirubin,Urine Negative (Negative); Clarity,Urine Clear (Clear); Color,Urine Straw (Yellw/Straw); Glucose,Urine (UA) Negative (Negative); Leukocyte Esterase,Urine Moderate (Negative); Nitrite,Urine Negative (Negative); Specific Gravity,Urine 1.004 (1.002-1.035); Squamous Epithelial Cell,Urine 6 /hpf (0-5)
[2018-02-28] MEDS ORDERED: Bisacodyl 10 MG Supp RECTAL PRN (09:00)
[2018-02-28] MEDS ORDERED: Acetaminophen 325 MG Tablet PO PRN (09:00)
[2018-02-28] MEDS ORDERED: Gadobutrol PF 2 MMOL/2 ML Vial (for RAD) IV.SIG ONE (09:30)
--- NOTE | 2018-02-28 10:13 | MR ---
EXAM DATE: 02/28/2018 9:43 AM EDT AGE/SEX: 32 years / Female INDICATIONS: Right sided weakness. CLINICAL DATA: This is the patient's initial encounter. Patient reports that signs and symptoms have been present for 1 day and indicates a pain score of 0/10. MEDICAL/SURGICAL HISTORY: None. None. COMPARISON: [facility] [place], MR HEAD W & W/O CONTRAST, 02/28/2018. . TECHNIQUE: 3D [id number] MRA was performed. Source images, multiplanar STS MIP, and 3D volum e MIP reconstructions were reviewed. FINDINGS: There is excellent visualization of the major intracranial arteries out to the second-order branch ve ssels. There is no evidence for aneurysm, vessel truncation or stenosis, and no evidence for vascula r malformation. CONCLUSION: 1. Negative MRA of the brain Electronically signed by: Dannie Dias MD 02/28/2018 10:12 AM EDT
--- NOTE | 2018-02-28 10:13 | MR ---
EXAM DATE: 02/28/2018 9:44 AM EDT AGE/SEX: 32 years / Female INDICATIONS: Right sided weakness. CLINICAL DATA: This is the patient's initial encounter. Patient reports that signs and symptoms have been present for 1 day and indicates a pain score of 0/10. MEDICAL/SURGICAL HISTORY: None. None. COMPARISON: No prior exams available for comparison. TECHNIQUE: Multiplanar, multisequence examination of the brain was performed without and with 6 ml Ga davist (gadobutrol) contrast as a single exam dose. FINDINGS: Cerebrum: The ventricles are normal for age. No evidence of midline shift, mass lesion, hemorrhage or acute infarction. No extraaxial fluid collections are seen. The pituitary gland and suprasellar cistern are normal in configuration. White Matter: No significant signal abnormalities are seen in the white matter. Posterior Fossa: The cerebellum and brainstem are intact. The 4th ventricle is midline. The cerebel lopontine angle is unremarkable. The cerebellar tonsils are normal in position. Diffusion Imaging: No focal areas of restricted diffusion are seen. No evidence of acute infarction . Extracranial: The visualized portions of the orbits and paranasal sinuses are unremarkable. Post Contrast: No abnormal areas of parenchymal or dural enhancement. No evidence of blood-brain ba rrier breakdown. CONCLUSION: 1. Negative MRI of the brain without and with contrast.. Electronically signed by: Dannie Dias MD 02/28/2018 10:11 AM EDT
[2018-02-28] MEDS: Senna/Docusate Sodium 8.6/50 MG Tablet PO SCH ×2 (10:37→22:42)
[2018-02-28] MEDS: Sod Chloride 0.9% Inj 1,000 ML IV.CONT SCH ×3 (10:37→22:45)
--- NOTE | 2018-02-28 11:57 | MB ---
cc: Ifeoma Eastman MD DATE: 02/28/2018 REASON FOR CONSULTATION: Left upper extremity numbness, weakness. HISTORY OF PRESENT ILLNESS: This is a pleasant 32-year-old woman, about 2 weeks . Had a normal vaginal delivery, no complications. Questionably borderline preeclamptic near the end. Come in because she woke up sometime around 2 or 3 o'clock in the morning. Left arm felt numb and tingly. Currently, she still feels her fingertips are tingly and numb, as well as like a sensation of a tourniquet around her elbow. She thinks that her left breast is a little bit more engorged, but the baby is and having no weakness in the leg. No facial droop. She has been having some headaches over the last week, thinking that it was sleep-deprived, but no headache currently. PAST MEDICAL HISTORY: Pehypertension and preeclampsia possibly, but no longer. PAST SURGICAL HISTORY: None. SOCIAL HISTORY: No abuse. No smoking or alcohol. MEDICINES AT HOME: I believe are vitamins. PHYSICAL EXAMINATION: VITAL SIGNS: Temperature 98.8, pulse 71, respiratory rate 17, blood pressure 130/87, saturating at 98% on room air. NECK: Supple. I do not appreciate any bruits. HEART: Regular. NEUROLOGIC: She is awake, alert. She is oriented and fluent. Pupils reactive. Visual dejesus full. Face symmetrical. Tongue midline. Motor adam, she does not exhibit a drift. Very mildly decreased director dance on the left compared to the right as well as finger strength, but there is no drift. Sensory is intact to all modalities, just feels different to light touch over the antecubital area and forearm region as well as the fingertips. There is no lid lag. Toes are downgoing. Cerebellar is normal. Gait is withheld at this time. LABORATORY DATA: Reviewed. Neutrophils are 74.7, bit otherwise CBC is normal. Coagulation panel is normal. Chemistries, albumin 3.3, alkaline phosphatase 131, chloride 110. Urine, moderate blood, 6 white cells. Culture is not indicated. MRI brain and [place] [place] [facility] [place] with and without gadolinium were unremarkable. She has pending an MRV. IMPRESSION: Dysesthesia left upper extremity, may be headache-related. Recommend getting the MRV. Certainly if that is unremarkable, she could be discharged home. Consider also continuing with a baby aspirin and having her follow up with me in a week in the office. Further recommendations can be made accordingly, but if stable and back to baseline can be discharged home as outlined. Of note, the patient denies any cervicogenic pain whatsoever. MD GELA Wagner/sherin , 11:02 AM , 11:11 AM
--- NOTE | 2018-02-28 14:52 | P.HPIM ---
History of Present Illness Primary Care Physician: No Primary Care Physician Chief Complaint: Headaches, right arm weakness History of Present Illness: 32 y/o female states at 3 am awoke with left arm weakness and numbness. She is [address] Arellano performed a vaginal delivery. She states that she had no complications with the delivery but was borderline preeclamptic near the end. She states that she did not have any symptoms yesterday. She states that her left breast is more engorged if that matters. She states that She is having no other concurrent complaints. She states she did have a headache earlier but it has now resolved. The patient however still has right arm weakness and tingling in her fingers. Says she feels her right arm has a cuff. Speech is normal no change in vision. She is able to ambulate without any problems. Says she had edema after delivery however improved significantly in her legs. She is exclusively breast-feeding. She has no chest pain or shortness of breath. No palpitations. No nausea vomiting no diarrhea constipation. No urinary complaints. No vaginal bleeding. Inpatient Certification: I certify that the inpatient services were ordered in accordance with Medicare regulations governing the order. This includes certification that hospital inpatient services are reasonable and necessary and in the case of services not specified as inpatient-only under 42 CFR 419.22(n), that they are appropriately provided as inpatient services in accordance to with the 2-midnight benchmark under 43 CFR 412.3(e) Estimated Total Length of Stay (Days): 3 Plans for Post Hospital Care: Home Review of Systems All other systems reviewed negative except as stated in HPI PMFSH - History History Provided By: Patient - Medical History Medical History: Medical History (Last Reviewed 02/28/18 @ 14:43 by Daya Gonzalez MD) Prehypertension - Surgical History Surgical History: Surgical History (Last Reviewed 02/28/18 @ 14:43 by Daya Gonzalez MD) No history of previous surgery - Family History Family History: Family History (Last Updated 02/28/18 @ 14:44 by Daya Gonzalez MD) Grandparent Hyperlipidemia Diabetes Mother No problems noted. Grandparent Diabetes - Social History I have reviewed the patient's Social History: Yes - Tobacco History Second Hand Smoke Exposure: No Smoking Status: Never smoker - Alcohol History How Often Do You Have a Drink Containing Alcohol: Never - Substance Use History Substance History: No History of Abuse - Travel History Recent Travel in the [place] Within the Last 8 Weeks: No Recent Travel Out of the Country Within the Last 8 Weeks: No - Immunization History Tetanus Immunization: <5 Years Medications and Allergies Active Medications: Active Medications Acetaminophen (Tylenol) 650 mg PO Q4H PRN PRN Reason: Temp > 100.4 Al Hydroxide/Mg Hydroxide (Milk Of Magnesia Liq) 30 ml PO Q12H PRN PRN Reason: Mild Constipation Bisacodyl (Dulcolax Supp) 10 mg RECTAL DAILY PRN PRN Reason: SEVERE CONSITIPATION Sodium Chloride (Ns Inj) 1,000 mls @ 75 mls/hr IV.CONT .[id number] [facility] Last Admin: 02/28/18 10:37 Dose: 75 mls/hr Lactulose (Lactulose Liq) 30 ml PO DAILY PRN PRN Reason: SEVERE CONSITIPATION Ondansetron HCl (Zofran Inj) 4 mg IV.PUSH Q6H PRN PRN Reason: NAUSEA OR VOMITING Senna/Docusate Sodium (Christina-Colace) 1 tab PO BID [facility] Last Admin: 02/28/18 10:37 Dose: Not Given Sennosides (Senokot) 17.2 mg PO Q12H PRN PRN Reason: Moderate Constipation Sodium Chloride (Ns Flush) 2 ml IV.FLUSH PRN PRN PRN Reason: FLUSH AFTER USING IV ACCESS Allergies Allergy/AdvReac Type Severity Reaction Status Date / Time No Known Allergies Allergy Verified 02/28/18 06:13 Home Medications Medication Instructions Recorded Confirmed Type PNV cmb#95-ferrous fumarate-FA 1 tab PO DAILY NEB 02/11/18 02/28/18 History [] Exam Vital signs: Vital Signs 02/28/18 06:10 02/28/18 06:13 02/28/18 07:30 Temperature 98.8 F Pulse Rate 101 H 89 82 Respiratory Rate 18 20 22 Blood Pressure 148/94 H 135/80 135/80 Pulse Oximetry 98 98 97 02/28/18 10:50 Temperature Pulse Rate 71 Respiratory Rate 17 Blood Pressure 130/87 Pulse Oximetry 98 Intake & Output 02/27/18 02/28/18 02/28/18 18:59 06:59 18:59 Weight 61.689 kg Narrative: GENERAL: Very pleasant 32-year-old female in bed appears in not acute distress. SKIN: Warm and dry. HEAD: Atraumatic. Normocephalic. EYES: Pupils equal and round. No scleral icterus. No injection or drainage. ENT: No nasal bleeding or discharge. Mucous membranes pink and moist. NECK: Trachea midline. No JVD. CARDIOVASCULAR: Regular rate and rhythm. RESPIRATORY: No accessory muscle use. Clear to auscultation. Breath sounds equal bilaterally. GASTROINTESTINAL: Abdomen soft, non-tender, nondistended. Hepatic and splenic margins not palpable. MUSCULOSKELETAL: Extremities without clubbing, cyanosis, or edema. No obvious deformities. NEUROLOGICAL: Awake and alert. No obvious cranial nerve deficits. Motor grossly within normal limits. Five out of 5 muscle strength in the arms and legs. Except 4 out of 5 muscle strength right upper extremity. Positive Phalen test. Normal speech. PSYCHIATRIC: Appropriate mood and affect; insight and judgment normal. Results - Labs CBC & Chem 7: 02/28/18 07:11 02/28/18 07:11 Labs: Short CBC 02/28/18 Range/Units 07:11 WBC 8.9 (4.0-11.0) th/mm3 Hgb 12.9 (11.6-15.3) gm/dL Hct 38.2 (35.0-46.0) % Plt Count 316 D (150-450) th/mm3 BMP 02/28/18 07:11 Sodium 143 Potassium 4.0 Chloride 110 H Carbon Dioxide 24.7 BUN 13 Creatinine 0.64 Calcium 8.7 Liver Function 02/28/18 Range/Units 07:11 Total Bilirubin 0.2 (0.2-1.0) mg/dL AST 16 (15-37) U/L ALT 21 (10-53) U/L Alkaline Phosphatase 131 H (45-117) U/L Albumin 3.3 L (3.4-5.0) g/dL Urine 02/28/18 Range/Units 04:50 Urine Color Straw (Yellw/Straw) Urine Clarity Clear (Clear) Urine pH 6.0 (5.0-8.5) Ur Specific [place] 1.004 (1.002-1.035) Urine Protein Negative (Neg-Trace) mg/dL Urine Glucose (UA) Negative (Negative) mg/dL - Imaging Impressions Head CT 02/28/18 07:14 CONCLUSION: 1. Negative for acute process . Head MRI 02/28/18 08:35 CONCLUSION: 1. Negative MRI of the brain without and with contrast.. Head MRA 02/28/18 08:37 CONCLUSION: 1. Negative MRA of the brain Caprini VTE Risk Assessment Caprini VTE Risk Assessment: No/Low Risk (score <= 1) Caprini Risk Assessment Model: Point Value = 1 Point Value = 2 Point Value = 3 Point Value = 5 Age 41-60 Minor surgery BMI > 25 kg/m2 Swollen legs Varicose veins or History of unexplained or recurrent spontaneous Oral contraceptives or hormone replacement Sepsis (< 1 month) Serious lung disease, including pneumonia (< 1 month) Abnormal pulmonary function Acute myocardial infarction Congestive heart failure (< 1 month) History of inflammatory bowel disease Medical patient at bed rest Age 61-74 Arthroscopic surgery Major open surgery (> 45 min) Laparoscopic surgery (> 45 min) Malignancy Confined to bed (> 72 hours) Immobilizing plaster cast Central venous access Age >= 75 History of VTE Family history of VTE Factor V Leiden Prothrombin [id number] Lupus anticoagulant Anticardiolipin antibodies Elevated serum homocysteine Heparin-induced thrombocytopenia Other congenital or acquired thrombophilia Stroke (< 1 month) Elective arthroplasty Hip, pelvis, or leg fracture Acute spinal cord injury (< 1 month) Prophylaxis Regimen: Total Risk Factor Score Risk Level Prophylaxis Regimen 0-1 Low Early ambulation 2 Moderate Order ONE of the following: *Sequential Compression Device (SCD) *Heparin 5000 units SQ BID 3-4 Higher Order ONE of the following medications: *Heparin 5000 units SQ TID *Enoxaparin/Lovenox 40 mg SQ daily (WT < 150 kg, CrCl > 30 mL/min) *Enoxaparin/Lovenox 30 mg SQ daily (WT < 150 kg, CrCl > 10-29 mL/min) *Enoxaparin/Lovenox 30 mg SQ BID (WT < 150 kg, CrCl > 30 mL/min) AND/OR *Sequential Compression Device (SCD) 5 or more Highest Order ONE of the following medications: *Heparin 5000 units SQ TID (Preferred with Epidurals) *Enoxaparin/Lovenox 40 mg SQ daily (WT < 150 kg, CrCl > 30 mL/min) *Enoxaparin/Lovenox 30 mg SQ daily (WT < 150 kg, CrCl > 10-29 mL/min) *Enoxaparin/Lovenox 30 mg SQ BID (WT < 150 kg, CrCl > 30 mL/min) AND *Sequential Compression Device (SCD) Assessment and Plan - Plan Very pleasant 32-year-old female who came to the emergency room with complaints of headaches and right arm weakness. The patient is 2 weeks . Has a history of preeclampsia and a history of chronic hypertension managed with diet and exercise. Headaches and right arm weakness. Rule out CVA rule out sinus thrombosis. Possible carpal tunnel syndrome Patient still with right arm weakness however headaches resolved CT head reviewed and normal, discussed with the patient and ER physician Neurology was consulted, Dr. Eastman has seen the patient. MRI and MRA of the brain reviewed and normal findings discussed with the patient , neurology Dr. Eastman Ordered MR venous to rule out sinus thrombosis Monitor on telemetry Keep oxygen saturation more than 94%, give oxygen supplement if need Keep normoglycemic normotensive DVT prophylaxis SCD/teds Discussed Condition With: Patient, nurse, Dr. Estevez ED physician, Dr. Eastman neurology
[2018-02-28] MEDS ORDERED: Gadobutrol PF 10 MMOL/10 ML Vial (for RAD) IV.SIG ONE (16:22)
--- NOTE | 2018-02-28 16:24 | MR ---
EXAM DATE: 02/28/2018 4:14 PM EDT AGE/SEX: 32 years / Female INDICATIONS: Cephalgia. CLINICAL DATA: This is the patient's initial encounter. Patient reports that signs and symptoms have been present for 1 day and indicates a pain score of 3/10. MEDICAL/SURGICAL HISTORY: None. None. COMPARISON: C, MR HEAD W & W/O CONTRAST, 02/28/2018. C, MRA HEAD W/O CONTRAST, 02/28/2018. C, CT HEAD W/O CONTRAST, 02/28/2018. . TECHNIQUE: MR cerebral venography is performed without and with 10 ml Gadavist (gadobutrol) contrast (single exam dose). Source images, 3D volume MIP, and sliding thin slab MIP reconstructions were re viewed. FINDINGS: There is excellent visualization of the dural venous sinuses. There is no evidence for aneurysm, vess el truncation or stenosis, and no evidence for vascular malformation. CONCLUSION: 1. Negative MRV Brain with and without contrast. Electronically signed by: Cuco Mason MD 02/28/2018 4:23 PM EDT
[2018-03-01 05:46] VITALS: RESP 20
[2018-03-01] MEDS: Senna/Docusate Sodium 8.6/50 MG Tablet PO SCH (08:11)
[2018-03-01 08:52] LABS: Baso % (Auto) 0.5 % (0.0-2.0); Eos # (Auto) 0.2 th/mm3 (0.0-0.4); Eos % (Auto) 3.2 % (0.0-4.0); Hemoglobin 13.1 gm/dL (11.6-15.3); Lymph # (Auto) 2.1 th/mm3 (1.0-4.8); Lymph % (Auto) 30.6 % (9.0-44.0); Mean Corpuscular HGB Conc 33.5 % (32.0-36.0); Mean Corpuscular Hemoglobin 31.6 pg (27.0-34.0); Mean Corpuscular Volume 94.2 fL (80.0-100.0); Mean Platelet Volume 8.3 fL (7.0-11.0); Mono # (Auto) 0.3 th/mm3 (0.0-0.9); Neut # (Auto) 4.3 th/mm3 (1.8-7.7); Neut % (Auto) 61.7 % (16.0-70.0); Platelet Count 309 th/mm3 (150-450); Red Blood Count 4.14 mil/mm3 (4.00-5.30); Red Cell Distribution Width 12.6 % (11.6-17.2)
[2018-03-01 09:02] VITALS: BP 127/67; TEMP 98
[2018-03-01 09:28] LABS: Albumin 3.2 g/dL (3.4-5.0); Anion Gap 7 meq/L (5-15); Aspartate Aminotransferase 18 U/L (15-37); Blood Urea Nitrogen 13 mg/dL (7-18); Calcium 8.4 mg/dL (8.5-10.1); Carbon Dioxide 25.4 meq/L (21.0-32.0); Chloride 111 meq/L (98-107); Glomerular Filtration Rate Greater Than 89 mL/min (>89); Glucose,Random 80 mg/dL (74-106); Potassium 3.9 meq/L (3.5-5.1); Sodium 143 meq/L (136-145)
[2018-03-01 09:33] LABS: Alanine Aminotransferase 18 U/L (10-53); Alkaline Phosphatase 105 U/L (45-117); Total Protein 7.3 g/dL (6.4-8.2)
[2018-03-01 09:50] VITALS: PULSE 80
--- NOTE | 2018-03-01 10:32 | P.PN ---
Subjective Interval history: Follow-up Dysesthesia of left upper extremity March 01, 2018-patient seen and examined, reports some improvement of left upper extremity tingling and numbness. Denies any headache this morning. Patient states she is mostly breast-fed her baby holding her baby and her left arm. Symptoms starting since breast-feeding the baby Physical Exam Vital signs: Vital Signs 02/28/18 10:50 02/28/18 16:00 02/28/18 20:00 Temperature 98.3 F 97.9 F Pulse Rate 71 72 72 Respiratory Rate 17 18 19 Blood Pressure 130/87 104/67 120/64 Pulse Oximetry 98 99 100 03/01/18 00:00 03/01/18 04:00 03/01/18 08:00 Temperature 97.9 F 97.9 F 98.0 F Pulse Rate 71 73 80 Respiratory Rate 17 20 20 Blood Pressure 108/58 L 101/59 L 127/67 Pulse Oximetry 96 97 97 Intake & Output 02/28/18 03/01/18 03/01/18 18:59 06:59 18:59 Intake Total 1000 / 1000 221 / 221 1240 / 1240 Balance 1000 / 1000 221 / 221 1240 / 1240 Weight 66.2 kg Intake: IV 1000 / 1000 1000 / 1000 NS Inj 1,000 ML @ 75 mls/hr IV. 1000 / 1000 1000 / 1000 CONT .[id number] JOSE E Rx#:[id number] Oral 221 / 221 240 / 240 Other: # Voids 1 1 1 Date of Last Bowel Movement 02/28/18 Weight On Admission 66.2 kg Narrative: GENERAL: Very pleasant 32-year-old female in bed appears in not acute distress. SKIN: Warm and dry. HEAD: Atraumatic. Normocephalic. EYES: Pupils equal and round. No scleral icterus. No injection or drainage. ENT: No nasal bleeding or discharge. Mucous membranes pink and moist. NECK: Trachea midline. No JVD. CARDIOVASCULAR: Regular rate and rhythm. RESPIRATORY: No accessory muscle use. Clear to auscultation. Breath sounds equal bilaterally. GASTROINTESTINAL: Abdomen soft, non-tender, nondistended. Hepatic and splenic margins not palpable. MUSCULOSKELETAL: Extremities without clubbing, cyanosis, or edema. No obvious deformities. NEUROLOGICAL: Awake and alert. No obvious cranial nerve deficits. Motor grossly within normal limits. Five out of 5 muscle strength in the arms and legs. Except 4 out of 5 muscle strength right upper extremity. Positive Phalen test. Normal speech. PSYCHIATRIC: Appropriate mood and affect; insight and judgment normal. Results - Labs CBC & Chem 7: 03/01/18 06:53 03/01/18 06:53 Laboratory Results - last 24 hr 03/01/18 03/01/18 06:53 06:53 WBC 7.0 RBC 4.14 Hgb 13.1 Hct 39.0 MCV 94.2 MCH 31.6 MCHC 33.5 RDW 12.6 Plt Count 309 MPV 8.3 Neut % (Auto) 61.7 Lymph % (Auto) 30.6 [place] % (Auto) 4.0 Eos % (Auto) 3.2 Baso % (Auto) 0.5 Neut # (Auto) 4.3 Lymph # (Auto) 2.1 [place] # (Auto) 0.3 Eos # (Auto) 0.2 Baso # (Auto) 0.0 WBC Differential . Differential Comment Auto diff final Sodium 143 Potassium 3.9 Chloride 111 H Carbon Dioxide 25.4 Anion Gap 7 BUN 13 Creatinine 0.69 Estimated GFR Greater than 89 Random Glucose 80 Calcium 8.4 L Total Bilirubin 0.4 AST 18 ALT 18 Alkaline Phosphatase 105 Total Protein 7.3 Albumin 3.2 L - Imaging Impressions Head/Brain Mag Res Venography 02/28/18 00:00 CONCLUSION: 1. Negative MRV Brain with and without contrast. Assessment and Plan - Plan 32-year-old female with Dysesthesia of left upper extremity-improving MRI and MRI negative MRV of the brain negative as well Appreciate input from neurology Start baby aspirin 81 mg daily Patient will be discharged home with follow-up with neurology in 1 week Discharge patient to home Condition on discharge: Improved Regular Diet as tolerated Ad Balbina activity Rx written:ASA 81mg Follow-up with primary care physician Neurology in 1 week
[2018-03-01 12:27] VITALS: O2SAT 99
== END 2018-03-01 14:25 | disposition home or self-care (01) ==
LOC: NEPC 06:08 → NEDA 08:56 → N05 14:18
PROVIDERS: ADMIT Hospitalist; ATTEND Hospitalist